=== PATIENT | female | born 1985 | race Caucasian/White ===

== ENCOUNTER 2019-11-12 15:14 | Outpatient (CLI) | payer OTHER ==
--- NOTE | 2019-11-12 15:47 | RAD ---
PA AND LATERAL CHEST: HISTORY: Bilateral pneumothorax. FINDINGS: There is a right sided Port-A-Cath with the tip in the projection of the SVC. The heart is enlarged. No lobar consolidation, pneumothoraces or large effusions are seen. POS: [facility]
== END 2019-11-12 15:15 | disposition home or self-care (01) ==
LOC: RAD 15:14
PROVIDERS: ATTEND Thoracic Surgery (Cardiothoracic Vascular Surgery)
DX: J93.9 Pneumothorax, unspecified (principal)
CPT/HCPCS: 71046